=== PATIENT | male | born 2005 | race Caucasian/White ===

== ENCOUNTER 2025-01-21 14:45 | Emergency (ER) | payer BC, SELFPAY ==
[2025-01-21 15:03] VITALS: BP 128/82; PULSE 63; RESP 16; TEMP 37; O2SAT 98
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
[2025-01-21] MEDS: Ketorolac 15 MG/ML VIAL IVP (15:44)
[2025-01-21] MEDS: LORazepam 20 MG/10 ML VIAL IVP (15:44)
--- NOTE | 2025-01-21 16:00 | DI.RAD_ITS ---
Exam(s) XR HAND RT COMPLETE EXAM: XR HAND RT COMPLETE CLINICAL HISTORY: post reduction R thumb dislocation. TECHNIQUE: 2D digital imaging was performed. Three views. COMPARISON: CR XR HAND RT COMPLETE from 01/21/2025 FINDINGS: BONES: Avulsion fracture at the ulnar base of the first proximal phalanx. No additional fractures. No bony destructive lesion is seen. JOINTS: The previously noted dislocation has been reduced. SOFT TISSUE: Normal. IMPRESSION: Reduction of the previously noted dislocation at the first metacarpal phalangeal joint. Avulsion fracture at the ulnar base of the proximal phalanx of the thumb. DATA REPOSITORY: RADIATION DOSE DELIVERED:
[2025-01-21 18:10] VITALS: BP 111/63; PULSE 53; RESP 16; O2SAT 100
--- NOTE | 2025-01-23 11:30 | NUR.NOTE ---
Access chart to get the discharge diagnosis for [facility] billing requisition. Nursing Note:
== END 2025-01-21 18:25 | disposition home or self-care (01) ==
PROVIDERS: Emergency Provider Emergency Medicine
DX: S62.291A Other fracture of first metacarpal bone, right hand, initial encounter for closed fracture (principal); V18.4XXA Pedal cycle driver injured in noncollision transport accident in traffic accident, initial encounter; Y92.482 Bike path as the place of occurrence of the external cause; Y93.55 Activity, bike riding
CPT/HCPCS: 26755; 96374; 96375; 99284; 73130; J1885; J2060